=== PATIENT | male | born 1960 | race Caucasian/White ===

== ENCOUNTER 2024-05-05 07:33 | Day surgery (SDC) | payer OTHER ==
[~2024-05-05] VITALS: Ht 175.3 cm; Wt 77.1 kg
[~2024-05-05 07:33] MED LIST: ASPIRIN325 MG PO
[2024-05-05] MEDS ORDERED: LACTATED RINGER'S 1,000 ML IV ONE (07:37)
[2024-05-05] MEDS ORDERED: FAMOTIDINE 10MG/ML 2ML SDV IV ONE (07:37)
[2024-05-05 10:00] VITALS: BP 102/49
[2024-05-05] MEDS ORDERED: PROPOFOL 200 MG/20 ML VIAL IV ONE (10:57)
[2024-05-05] MEDS ORDERED: LIDOCAINE HCL 2% 2ML SDV IV ONE (10:57)
== END 2024-05-05 09:52 | disposition home or self-care (01) | DRG 395 ==
LOC: ENDO 07:33 → ORM 09:25 → ENDO 09:25 → ORM 10:45
PROVIDERS: ATTEND Surgery
PROC: 0DBM8ZX Excision of Descending Colon, Via Natural or Artificial Opening Endoscopic, Diagnostic (ICD-10-PCS; principal; 2024-05-05)
PROC: 3E0H8KZ Introduction of Other Diagnostic Substance into Lower GI, Via Natural or Artificial Opening Endoscopic (ICD-10-PCS; 2024-05-05)
DX: D12.4 Benign neoplasm of descending colon (principal); K57.30 Diverticulosis of large intestine without perforation or abscess without bleeding; K64.8 Other hemorrhoids; Z80.0 Family history of malignant neoplasm of digestive organs